=== PATIENT | female | born 1975 | race Caucasian/White ===

== ENCOUNTER 2024-06-14 09:03 | Emergency (ER) | payer BC, SELFPAY ==
--- OUTSIDE RECORDS SUMMARY | 2024-06-14 09:08 | XMS REPORT | Continuity of Care Document ---
Author Name Unknown Address [address] [facility] [address] [place] [address] [facility] Address [address] [facility] [address] [place] [address] Care Team Providers Care Supervisor Research Kennel Name Role Phone PCP, PATIENT DOES NOT HAVE A Primary Care Physic ricky Unavailable DARRELL LAKE Attending Clinician Unavailable Darrell Lake MD Attending Clinician [phone] Katherine Jiang MD Attending Clinician [phone] KATHERINE JIANG Attending Clinician Unavailable LIZ MENDEZ Attending Clinician Unavailable Liz Mendez PA-C Attending Clinician [phone] Unknown, Attending Attending Clinician Unavailab vijay Doctor Unassigned, [place] Attending Clinician U navailable [email or web address]_S Attending Clinician UnavailMattie Esparza RN Attending Clinician [phone] Noble Oro MD Attending Clinician [phone] Alexander Ruiz MD Attending Clinician [phone] Abril LIMA, Rizwana Attending Clinician Unavailab Su Chakraborty Attending Clinician [phone] Kalina Naranjo Attending Clinician [phone] KALINA HARDING Attending Clinician Unavailable Francisco Ashley DO Attending Clinician [phone] NOBLE ORO Attending Clinician Unavailable Leny Trevino MD Attending Clinician [phone] DARRELL LAKE Admitting Clinician Unavailable [email or web address]_S Admitting Clinician UnavailAlexander Gaytan MD Admitting Clinician NOBLE ORO Admitting Clinician Unavailable Payers Payer Name Policy Type Policy Number Effective Date Expirati on Date Source BCBS [facility] OUT [facility] STATE [id number] 2020 00:00:00 PHCS GENERIC [id number] 2023 00:00:00 Problems Condition Name Condition Details Condition Category Status Onset Date Resolution Date Last Treatment Date Treating Clinician Comments Source Obesity (BMI 30-39.9) Obesity (BMI 30-39.9) Disease Active 05-12 00:00: 00 [facility] Back pain Back pain Disease Active 12-06 00:00: 00 [facility] Atypical squamous cell changes of undetermin ed significan ce (ASCUS) on cervical cytology with positive high risk human papilloma virus (HPV) Atypical squamous cell changes of undetermin ed significan ce (ASCUS) on cervical cytology with positive high risk human papilloma virus (HPV) Disease Active 06-28 00:00: 00 [facility] Atypical squamous cell changes of undetermin ed significan ce (ASCUS) on cervical cytology with positive high risk human papilloma virus (HPV) Atypical squamous cell changes of undetermin ed significan ce (ASCUS) on cervical cytology with positive high risk human papilloma virus (HPV) Disease Active 06-28 00:00: 00 [facility] Morbid obesity with body mass index of 40.0-49.9 Morbid obesity with body mass index of 40.0-49.9 Disease Active 06-01 00:00: 00 [facility] Polycystic ovarian syndrome Polycystic ovarian syndrome Disease Active 06-01 00:00: 00 [facility] Hirsutism Hirsutism Disease Active 06-01 00:00: 00 [facility] Morbid obesity with body mass index of 40.0-49.9 Morbid obesity with body mass index of 40.0-49.9 Disease Active 06-01 00:00: 00 [facility] No known active problems No known active problems Disease [facility] Allergies, Adverse Reactions, Alerts Allergy Name Allergy Type Status Severity Reaction(s) Onset Date Inactive Date Treating Clinician Comments Source NO KNOWN ALLERGIE S Drug Class Active [facility] Social History Social Habit Start Date Stop Date Quantity Comments Source History SDOH Alcohol Std Drinks [facility] History SDOH Alcohol Binge [facility] Exposure to SARS-CoV-2 (event) Not sure [facility] History of tobacco use Current smoker [facility] Sexual orientation U [facility] History of Social function 2023 00:00:00 2023 00:00:00 [facility] Alcoholic beverage intake 2023 00:00:00 2023 00:00:00 Current drinker of alcohol (finding) [facility] Tobacco use and exposure 2023-05-12 00:00:00 2023-05-12 00:00:00 Smokeless tobacco non-user [facility] Alcohol intake 2023-05-12 00:00:00 2023-05-12 00:00:00 Current drinker of alcohol (finding) [facility] History SDOH Alcohol Frequency 2019-06-01 00:00:00 2019-06-01 00:00:00 2 [facility] Sex assigned at 1975 00:00:00 1975 00:00:00 [facility] Smoking Status Start Date Stop Date Source Ex-smoker 2023-05-12 00:00:00 2023-05-12 00:00:[address] [facility] Medications Ordered Medication Name Filled Medication Name Start Date Stop Date Current Medication? Ordering Clinician Indication Dosage Frequency Signature (SIG) Comments Components Source ibuprofen (IBU) tablet 600 mg 08-21 16:00: 00 08-21 15:56 :00 No 600mg 600 mg, Oral, ONCE, 1 dose, On Tue08/22/23 at 1100, [facility] HYDROcodone -acetaminop hen (NORCO 5) 5-325 mg tablet 1 tablet 08-21 16:00: 00 08-21 15:56 :00 No 1{tbl} 1 tablet, Oral, ONCE, 1 dose, On 08/22/23 at 1100, [facility] metroNIDAZO LE 500 mg tablet -15 00:00: 00 Yes [id number] 500mg Take 1 tablet by mouth every 12 (twelve) hours. [facility] ketorolac (TORADOL) injection 60 mg 04-13 00:30: 00 04-12 23:52 :00 No [id number] 60mg [facility] naproxen 500 mg tablet 04-12 00:00: 00 Yes [id number] 500mg Take 1 tablet by mouth in the morning and 1 tablet in the evening. Take with meals. [facility] docusate 100 mg capsule 12-08 00:00: 00 Yes [id number] 100mg Take 1 capsule by mouth daily. [facility] docusate (COLACE) capsule 100 mg 12-07 14:00: 00 Yes 100mg 100 mg, Oral, DAILY, First dose on 12/07/20 at 0900, Until Discontinu ed, Routine [facility] gabapentin (NEURONTIN) capsule 300 mg 12-07 03:00: 00 Yes 300mg 300 mg, Oral, TID, First dose on 12/06/20 at 2200, Until Discontinu ed, Routine [facility] gabapentin 300 mg capsule 12-07 00:00: 00 Yes [id number] 300mg Take 1 capsule by mouth 3 (three) times daily. [facility] HYDROcodone -acetaminop hen 5-325 mg tablet 12-07 00:00: 00 Yes [id number] 1{tbl} Take 1 tablet by mouth every 4 (four) hours as needed for Pain (scale 7-10). Indication s: acute pain [facility] methocarbam oL 500 mg tablet 12-07 00:00: 00 Yes [id number] 500mg Take 1 tablet by mouth 4 (four) times daily. [facility] methylPREDN ISolone (MEDROL, RAJESH,) 4 mg tablets 12-07 00:00: 00 Yes [id number] Take by mouth SEE-INSTRU CTIONS. follow package directions [facility] methocarbam oL (ROBAXIN) tablet 500 mg 12-06 21:00: 00 Yes 500mg 500 mg, Oral, QID, First dose on 12/06/20 at 1600, Until Discontinu ed, Routine [facility] buPROPion SR 150 mg SR tablet 12-06 19:10: 37 12-06 00:00 :00 No bupropion HCl SR 150 mg tablet,12 hr sustained- release [facility] morpHINE injection 4 mg 12-06 19:09: 24 Yes 4mg 4 mg, Slow IV Push, Q3HPRN, Starting 12/06/20 at 1409, Until Discontinu ed, Routine, breakthrou gh pain 4-10 [facility] ondansetron (ZOFRAN (PF)) injection 4 mg 12-06 19:05: 40 Yes 4mg 4 mg, Slow IV Push, Q6HPRN, Starting 12/06/20 at 1405, Until Discontinu ed, Routine, Nausea and Vomiting (N/V) [facility] HYDROcodone -acetaminop hen (NORCO 5) 5-325 mg tablet 1 tablet 12-06 19:05: 39 Yes 1{tbl} 1 tablet, Oral, Q4HPRN, Starting 12/06/20 at 1405, Until Discontinu ed, Routine, Pain (scale 7-10) [facility] traMADoL (ULTRAM) tablet 50 mg 12-06 19:05: 39 Yes 50mg 50 mg, Oral, Q4HPRN, Starting 12/06/20 at 1405, Until Discontinu ed, Routine, Pain (scale 4-6) [facility] acetaminoph en (TYLENOL) tablet 650 mg 12-06 19:05: 39 Yes 650mg 650 mg, Oral, Q4HPRN, Starting 12/06/20 at 1405, Until Discontinu ed, Routine, Pain (scale 1-3) [facility] FENTanyl PF (SUBLIMAZE (PF)) injection 100 mcg 12-06 18:30: 00 12-06 17:20 :00 No 100ug 100 mcg, Slow IV Push, ONCE, 1 dose, 12/06/20 at 1330, Routine [facility] iopamidol (ISOVUE 370-500 mL) injection 120 mL 12-06 16:30: 00 12-06 16:30 :00 No [id number] 120mL 120 mL, Intravenou s, ONCE, 1 dose, 12/06/20 at 1130, Routine [facility] ondansetron (ZOFRAN (PF)) injection 4 mg 12-06 15:45: 00 12-06 14:52 :00 No 4mg 4 mg, Slow IV Push, ONCE, 1 dose, 12/06/20 at 1045, [facility] FENTanyl PF (SUBLIMAZE (PF)) injection 100 mcg 12-06 15:45: 00 12-06 14:53 :00 No 100ug 100 mcg, Slow IV Push, ONCE, 1 dose, 12/06/20 at 1045, Rout[facility] NaCl 0.9% (NS) bolus infusion 500 mL 12-06 15:45: 00 12-06 15:30 :00 No 500mL at 999 mL/hr, 500 mL, IV Piggyback, ONCE, 1 dose, 12/06/20 at 1045, STAT [facility] buPROPion SR 150 mg SR tablet 06-01 22:22: 13 Yes bupropion HCl SR 150 mg tablet,12 hr sustained- release [facility] ciprofloxac in HCl 500 mg tablet 05-25 00:00: 12-06 00:00 :00 No [facility] ondansetron (ZOFRAN (PF)) injection 4 mg 05-23 21:15: 05-23 20:06 :00 No 4mg 4 mg, Slow IV Push, ONCE, 1 dose, 05/23/19 at 1515, [facility] morpHINE injection 4 mg 05-23 21:15: 05-23 20:06 :00 No 4mg 4 mg, Slow IV Push, ONCE, 1 dose, 05/23/19 at 1515, STAT [facility] iohexol (OMNIPAQUE 350 BULK-150 mL) injection 120 mL 05-23 21:00: 05-23 21:00 :00 No 120mL 120 mL, Intravenou s, ONCE, 1 dose, 05/23/19 at 1500, Routine [facility] dicyclomine (BENTYL) 10 mg capsule 05-23 00:00: 06-01 00:00 :00 No [id number] 10mg Take 1 capsule by mouth 4 (four) times daily. [facility] ondansetron 4 mg disintegrat ing tablet 05-23 00:00: 06-01 00:00 :00 No [id number] 4mg Take 1 tablet by mouth every 4 (four) hours as needed for Nausea and Vomiting (N/V). [facility] traMADol 50 mg tablet 05-23 00:00: 06-01 00:00 :00 No [id number] 50mg Take 1 tablet by mouth every 6 (six) hours as needed for Pain (scale 4-6). [facility] citalopram 20 mg tablet 04-30 00:00: 00 12-06 00:00 :00 No [facility] HYDROcodone -acetaminop hen (NORCO) 10-325 mg tablet 1 tablet 12-26 16:45: 00 12-26 15:49 :00 No 1{tbl} 1 tablet, Oral, ONCE, 1 dose, Tu12/26/18 at 1145, Routine [facility] FENTanyl PF (SUBLIMAZE (PF)) injection 75 mcg 12-26 15:30: 00 12-26 14:45 :00 No 75ug 75 mcg, Intramuscu lar, ONCE, 1 dose, 12/26/18 at 1030, Routine [facility] traMADol (ULTRAM) 50 mg tablet 12-26 00:00: 00 12-06 00:00 :00 No [id number] 50mg Take 1 tablet by mouth every 6 (six) hours as needed for Pain (scale 7-10). [facility] methocarbam ol (ROBAXIN) 500 mg tablet 12-26 00:00: 00 06-01 00:00 :00 No [id number] 500mg Take 1 tablet by mouth 4 (four) times daily. [facility] No known medications No Un marsha [facility] Vital Signs Vital Name Observation Time Observation Value Comments S ource Systolic blood pressure 2023 16:13:27 139 mm[Hg] [facility] Diastolic blood pressure 2023 16:13:27 82 mm[Hg] [facility] Heart rate 2023 16:13:27 74 /min [facility] Respiratory rate 2023 16:13:27 18 /min [facility] Oxygen saturation in Arterial blood by Pulse oximetry 2023 16:13:27 98 /min [facility] Body temperature 2023 14:06:00 37.39 Felecia [facility] Body height 2023 14:06:00 162.6 cm [facility] Body weight 2023 14:06:00 97.523 kg [facility] BMI 2023 14:06:00 36.90 kg/m2 [facility] Systolic blood pressure 2023-05-12 17:05:00 116 mm[Hg] [facility] Diastolic blood pressure 2023-05-12 17:05:00 78 mm[Hg] [facility] Heart rate 2023-05-12 17:05:00 74 /min Unive [facility] Body temperature 2023-05-12 17:05:00 36.78 Felecia [facility] Respiratory rate 2023-05-12 17:05:00 18 /min [facility] Body height 2023-05-12 17:05:00 162.6 cm [facility] Body weight 2023-05-12 17:05:00 92.534 kg [facility] BMI 2023-05-12 17:05:00 35.02 kg/m2 [facility] Systolic blood pressure 2023-04-12 23:27:00 118 mm[Hg] [facility] Diastolic blood pressure 2023-04-12 23:27:00 73 mm[Hg] [facility] Heart rate 2023-04-12 23:27:00 96 /min Unive [facility] Body temperature 2023-04-12 23:27:00 37.11 Felecia [facility] Respiratory rate 2023-04-12 23:27:00 17 /min [facility] Body weight 2023-04-12 23:27:00 90.13 kg [facility] BMI 2023-04-12 23:27:00 34.11 kg/m2 [facility] Oxygen saturation in Arterial blood by Pulse oximetry 2023-04-12 23:27:00 97 /min [facility] Systolic blood pressure 2020-12-07 16:40:00 102 mm[Hg] [facility] Diastolic blood pressure 2020-12-07 16:40:00 60 mm[Hg] [facility] Heart rate 2020-12-07 16:40:00 78 /min Unive [facility] Body temperature 2020-12-07 16:40:00 36.39 Felecia [facility] Respiratory rate 2020-12-07 16:40:00 24 /min [facility] Oxygen saturation in Arterial blood by Pulse oximetry 2020-12-07 16:40:00 96 /min [facility] Body height 2020-12-06 20:27:00 162.6 cm [facility] Body weight 2020-12-06 20:27:00 86.183 kg [facility] BMI 2020-12-06 20:27:00 32.61 kg/m2 [facility] Systolic blood pressure 2020-11-12 19:20:00 138 mm[Hg] [facility] Diastolic blood pressure 2020-11-12 19:20:00 84 mm[Hg] [facility] Heart rate 2020-11-12 19:20:00 72 /min Unive [facility] Body temperature 2020-11-12 19:20:00 36.89 Felecia [facility] Respiratory rate 2020-11-12 19:20:00 18 /min [facility] Body height 2020-11-12 19:20:00 162.6 cm [facility] Body weight 2020-11-12 19:20:00 87.091 kg [facility] BMI 2020-11-12 19:20:00 32.96 kg/m2 [facility] Oxygen saturation in Arterial blood by Pulse oximetry 2020-11-12 19:20:00 98 /min [facility] Systolic blood pressure 2019-06-29 18:46:00 135 mm[Hg] [facility] Diastolic blood pressure 2019-06-29 18:46:00 84 mm[Hg] [facility] Heart rate 2019-06-29 18:46:00 81 /min [facility] Body temperature 2019-06-29 18:46:00 36.72 Felecia [facility] Respiratory rate 2019-06-29 18:46:00 18 /min [facility] Body height 2019-06-29 18:46:00 162.6 cm [facility] Body weight 2019-06-29 18:46:00 129.729 kg [facility] BMI 2019-06-29 18:46:00 49.09 kg/m2 [facility] Systolic blood pressure 2019-06-01 22:17:00 123 mm[Hg] [facility] Diastolic blood pressure 2019-06-01 22:17:00 76 mm[Hg] [facility] Heart rate 2019-06-01 22:17:00 79 /min Unive [facility] Body temperature 2019-06-01 22:17:00 36.72 Felecia [facility] Respiratory rate 2019-06-01 22:17:00 18 /min [facility] Body height 2019-06-01 22:17:00 162.6 cm [facility] Body weight 2019-06-01 22:17:00 128.368 kg [facility] BMI 2019-06-01 22:17:00 48.58 kg/m2 [facility] Respiratory rate 2019-05-23 21:20:00 12 /min [facility] Systolic blood pressure 2019-05-23 21:19:00 139 mm[Hg] [facility] Diastolic blood pressure 2019-05-23 21:19:00 76 mm[Hg] [facility] Heart rate 2019-05-23 21:19:00 72 /min [facility] Oxygen saturation in Arterial blood by Pulse oximetry 2019-05-23 21:19:00 100 /min [facility] Body temperature 2019-05-23 19:06:56 37.22 [facility] Body height 2019-05-23 17:37:00 162.6 cm [facility] Body weight 2019-05-23 17:37:00 127.007 kg [facility] BMI 2019-05-23 17:37:00 48.06 kg/m2 [facility] Systolic blood pressure 2018-12-26 13:57:00 140 mm[Hg] [facility] Diastolic blood pressure 2018-12-26 13:57:00 93 mm[Hg] [facility] Heart rate 2018-12-26 13:57:00 82 /min Unive [facility] Body temperature 2018-12-26 13:57:00 37.22 [facility] Respiratory rate 2018-12-26 13:57:00 20 /min [facility] Body weight 2018-12-26 13:57:00 125.646 kg [facility] BMI 2018-12-26 13:57:00 47.55 kg/m2 [facility] Oxygen saturation in Arterial blood by Pulse oximetry 2018-12-26 13:57:00 100 /min [facility] Procedures Procedure Date / Time Performed Performing Clinician Source POCT TEST 2023-04-12 23:48:00 Gema Mendez [facility] ASSIGNMENT OF BENEFITS 2023-04-12 23:21:35 Docto r Unassigned, [place] [facility] MR LUMBAR SPINE WO CONTRAST 2020-12-06 23:43:21 Salvador Giron [facility] PROTHROMBIN TIME / INR 2020-12-06 20:48:00 Janet Giron [facility] ACTIVATED PARTIAL THRMPLAS SALIMA 2020-12-06 20:48:00 Salvador Giron [facility] FIBRINOGEN 2020-12-06 20:48:00 Salvador Giron [facility] CT ABDOMEN PELVIS W CONTRAST 2020-12-06 15:30:47 Noble Oro [facility] CT LUMBAR SPINE WO CONTRAST 2020-12-06 [facility]:30[facility]. METABOLIC PANEL ([id number]) 2020-12-06 14:50:00 Nbole Oro [facility] CBC WITH DIFF 2020-12-06 14:50:00 Noble Oro [facility] COVID-19 (ID NOW RAPID TESTING) 2020-12-06 14:50:00 Noble Oro [facility] POCT TEST 2020-12-06 14:23:00 Binh Oro [facility] URINALYSIS 2020-12-06 14:21:00 Noble Oro [facility] NOTICE OF PRIVACY PRACTICES 2020-12-06 14:14:29 Doctor Unassigned, [place] [facility] CONSENT/REFUSAL FOR DIAGNOSIS AND TREATMENT 2020-12-06 14:14:03 Doctor Unassigned, [place] [facility] POCT GRP A STREP (MOLECULAR) 2020-11-12 19:50:00 Su Baer [facility] DISCLOSURE AND CONSENT, MEDICAL AND SURGICAL PROCEDURES 2019-06-29 05:01:00 Doctor Unassigned, [place] [facility] POCT TEST 2019-06-29 00:00:00 Adum, Katherine Daisy [facility] ASSIGNMENT OF BENEFITS 2019-06-01 22:02:06 Docto r Unassigned, [place] [facility] CT ABDOMEN PELVIS W CONTRAST 2019-05-23 20:51:27 Noble Oro [facility] POCT TEST 2019-05-23 20:02:00 Binh Oro [facility] HEPATIC FUNCTION PANEL ([id number]) (ALB,T.PRO,BILI T,BU/BC,ALT,AST,ALK PHOS) 2019-05-23 19:56:00 Noble Oro [facility] BASIC METABOLIC PANEL (NA, K, CL, CO2, GLUCOSE, BUN, CREATININE, CA) 2019-05-23 19:56:00 Noble Oro [facility] CBC WITH DIFFERENTIAL 2019-05-23 19:56:00 Justin Oro [facility] ACTIVATED PARTIAL THRMPLAS SALIMA 2019-05-23 19:56:00 Noble Oro [facility] URINALYSIS 2019-05-23 19:56:00 Noble Oro [facility] NOTICE OF PRIVACY PRACTICES 2019-05-23 17:21:59 Doctor Unassigned, [place] [facility] CONSENT/REFUSAL FOR DIAGNOSIS AND TREATMENT 2019-05-23 17:21:45 Doctor Unassigned, [place] [facility] CONSENT/REFUSAL FOR DIAGNOSIS AND TREATMENT 2018-12-26 13:32:28 Doctor Unassigned, [place] [facility] Encounters Start Date/Time End Date/Time Encounter Type Admission Type Attending [facility] Care Department Encounter ID Source 2021-02-09 18:44:45 Emergency [facility] [id number] [facility] 2023 09:09:00 2023 11:14:00 Emergency DARRELL [facility] ERT [id number] [facility] 2023 09:09:00 2023 11:14:00 Emergency Darrell Lake [facility] [id number] 350.1.13.10 4.2.7.2.686 [id number] [facility] 2023-05-26 00:00:00 2023-05-26 00:00:00 Case Management AdKatherine cote [facility] 1.2840.114 350.1.13.10 4.2.7.2.686 [id number] [facility] 2023-05-12 11:00:00 2023-05-12 12:25:07 Outpatient R KATHERINE JIANG [facility] [id number] [facility] 2023-05-12 11:00:00 2023-05-12 12:25:07 Office Visit Katherine Jiang [facility] [id number] 350.1.13.10 4.2.7.2.686 [id number] [facility] 2023-04-12 17:20:00 2023-04-12 17:57:33 Outpatient R VANESSA LIZ [facility] [id number] [facility] 2023-04-12 17:20:00 2023-04-12 17:57:33 Urgent Care Liz Mendez Unknown, Attending [facility] 1.84.114 350.1.13.10 4.2.7.2.686 [id number] [facility] 2023-04-12 00:00:00 2023-04-12 00:00:00 Orders Only Doctor Unassigned, [place] [facility] 1.0.114 350.1.13.10 4.2.7.2.686 [id number] [facility] 2023-02-04 00:00:00 2023-02-04 00:00:00 Outpatient GC_GCBZW_Ka diyala_S [facility] [id number] [facility] 2020-12-09 00:00:00 2020-12-09 00:00:00 Transition of Care Melo Mattie Marmolejo 1.20.114 350.1.13.10 4.2.7.2.686 [id number] [facility] 2020-12-06 09:24:00 2020-12-07 12:35:00 [facility] 1.20.114 350.1.13.10 4.2.7.2.686 [id number] [facility] 2020-12-06 00:00:00 2020-12-06 00:00:00 Orders Only Doctor Unassigned, [place] [facility] 1.20.114 350.1.13.10 4.2.7.2.686 [id number] [facility] 2020-11-13 00:00:00 2020-11-13 00:00:00 Letter (Out) Rizwana Samuels [facility] 1..114 350.1.13.10 4.2.7.2.686 [id number] [facility] 2020-11-12 14:13:53 2020-11-12 14:33:53 [facility] 1.114 350.1.13.10 4.2.7.2.686 [id number] [facility] 2020-11-12 14:20:00 2020-11-12 14:20:00 Outpatient KALINA NORMAN [facility] [id number] [facility] 2020-11-12 00:00:00 2020-11-12 00:00:00 Letter (Out) Su Baer [facility] Office [facility] [id number] 350.1.13.10 4.2.7.2.686 [id number] [facility] 2020-06-26 00:00:00 2020-06-26 00:00:00 Patient Outreach DionFrancisco [facility] 1.2840.114 350.1.13.10 4.2.7.2.686 [id number] [facility] 2019-07-03 00:00:00 2019-07-03 00:00:00 Telephone AdPetty coteian Daisy [facility] 1.2840.114 350.1.13.10 4.2.7.2.686 [id number] [facility] 2019-06-29 13:03:48 2019-06-29 14:26:29 Office Visit AdKatherine cote [facility] [id number] 350.1.13.10 4.2.7.2.686 [id number] [facility] 2019-06-29 13:00:00 2019-06-29 13:00:00 Outpatient R KATHERINE JIANG [facility] [id number] [facility] 2019-06-29 00:00:00 2019-06-29 00:00:00 Orders Only Doctor Unassigned, [place] [facility] [id number] 350.1.13.10 4.2.7.2.686 [id number] [facility] 2019-06-19 00:00:00 2019-06-19 00:00:00 Telephone AdPetty coteian Daisy [facility] [id number] 350.1.13.10 4.2.7.2.686 [id number] [facility] 2019-06-01 16:05:01 2019-06-01 17:13:21 [facility] 1.2840.114 350.1.13.10 4.2.7.2.686 [id number] [facility] 2019-06-01 16:00:00 2019-06-01 17:13:21 [facility] [id number] [facility] 2019-06-01 00:00:00 2019-06-01 00:00:00 Orders Only Doctor Unassigned, [place] [facility] 1.2840.114 350.1.13.10 4.2.7.2.686 [id number] [facility] 2019-05-23 12:55:08 2019-05-23 15:48:00 Emergency Shorty Noble [facility] 1.2840.114 350.1.13.10 4.2.7.2.686 [id number] [facility] 2019-05-23 12:55:08 2019-05-23 15:48:00 Emergency X [facility] ERT [id number] [facility] 2019-05-23 00:00:00 2019-05-23 00:00:00 Orders Only Doctor Unassigned, [place] [facility] [id number] [id number] [facility] 2018-12-26 08:59:22 2018-12-26 11:07:00 Emergency Leny Trevino [facility] [id number] [facility] 2018-12-26 00:00:00 2018-12-26 00:00:00 Orders Only Doctor Unassigned, [place] [facility] [id number] [id number] [id number] [facility] Results Test Description Test Time Test Comments Results Result Co [facility]ments [facility] [id number] 01:25:10 Mild degenerative changes result in no significant spinal canal stenosis orhigh- grade neural foraminal narrowing at any level A prominent lateral osteophyte at L5-S1 contacts and may impinge upon theleft L5 nerve root in the far lateral region MR LUMBAR SPINE WO CONTRAST HISTORY: Female 45 years back pain, urinary incontinence, concern for caudaequina syndrome COMPARISON: CT lumbar spine dated 12/06/2020 TECHNIQUE: Multiplanar multi weighted imaging of the lumbar spine wasobtained without IV contrast FINDINGS: The vertebral bodies are normal in height and in normal alignment. Theconus terminates at the level of L1. The cauda equina nerve roots areunremarkable. The background marrow signal is unremarkable. Type II Modic endplatechanges are seen at L4-L5. Mild disc height loss is seen at L4-L5. L1-L2: No significant spinal canal stenosis or neural foraminal narrowing L2-L3: No significant spinal canal stenosis or neural foraminal narrowing L3-L4: Shallow central disc protrusion with associated annular fissure atthis level result in no significant spinal canal stenosis or neuralforaminal narrowing L4-L5: A shallow posterior disc bulge results in no significant spinalcanal stenosis andmild bilateral neural foraminal narrowing L5-S1: A shallow posterior disc bulge results in no significant spinalcanal stenosis and mild left neural foraminal narrowing. A prominent leftlateral osteophyte is noted at this level. 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 [facility], Radiant Results Inft User - 12/06/2020 8:26 PM CDT MR LUMBAR SPINE WO CONTRASTHISTORY: Female 45 years back pain, urinary incontinence, concern for caudaequina syndrome COMPARISON: CT lumbar spine dated 12/06/2020TECHNIQUE: Multiplanar multi weighted imaging of the lumbar spine wasobtained without IV contrastFINDINGS:The vertebral bodies are normal in height and in normal alignment. Theconus terminates at the level of L1. The cauda equina nerve roots areunremarkable.The background marrow signal is unremarkable. Type II Modic endplatechanges are seen at L4-L5. Mild disc height loss is seen at L4-L5.L1-L2: No significant spinal canal stenosis orneural foraminal narrowingL2-L3: No significant spinal canal stenosis or neural foraminal narrowingL3-L4: Shallow central disc protrusion with associated annular fissure atthis level result in no significant spinal canal stenosis or neuralforaminal narrowingL4-L5: A shallow posterior disc bulge results in no significant spinalcanal stenosis and mild bilateral neural foraminal narrowingL5-S1: A shallow posterior disc bulge results in no significant spinalcanal stenosis and mild left neural foraminal narrowing. A prominent leftlateral osteophyte is noted at this level.A Tarlov cyst is incidentally seen at the level of S3.IMPRESSIONMild degenerative changes result in no significant spinal canal stenosis orhigh-grade neural foraminal narrowing at any levelA prominent lateral osteophyte at L5-S1 contacts and may impinge upon theleft L5 nerve root in the far lateral regionUnTexas Health Presbyterian Hospital PlanoMR LUMBAR SPINE WO [id number] 01:25:10Mild degenerative changes result in no significant spinal canal stenosis orhigh-grade neural foraminal narrowing at any level A prominent lateral osteophyte at L5-S1 contacts and may impinge upon theleft L5 nerve root in the far lateral region MR LUMBAR SPINE WO CONTRAST HISTORY: Female 45 years back pain, urinary incontinence, concern for caudaequina syndrome COMPARISON: CT lumbar spine dated 12/06/2020 TECHNIQUE: Multiplanar multi weighted imaging of the lumbar spine wasobtained without IV contrast FINDINGS: The vertebral bodies are normal in height and in normal alignment. Theconus terminates at the level of L1. The cauda equina nerve roots areunremarkable. The background marrow signal is unremarkable. Type II Modic endplatechanges are seen at L4-L5. Mild disc height loss is seen at L4-L5. L1-L2: No significant spinal canal stenosis or neural foraminal narrowing L2-L3: No significant spinal canal stenosis or neural foraminal narrowing L3-L4: Shallow central disc protrusion with associated annular fissure atthis level result in no significant spinal canal stenosis or neuralforaminal narrowing L4-L5: A shallow posterior disc bulge results in no significant spinalcanal stenosis andmild bilateral neural foraminal narrowing L5-S1: A shallow posterior disc bulge results in no significant spinalcanal stenosis and mild left neural foraminal narrowing. A prominent leftlateral osteophyte is noted at this level. 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 [facility], Radiant Results Inft User - 12/06/2020 8:26 PM CDT MR LUMBAR SPINE WO CONTRASTHISTORY: Female 45 years back pain, urinary incontinence, concern for caudaequina syndrome COMPARISON: CT lumbar spine dated 12/06/2020TECHNIQUE: Multiplanar multi weighted imaging of the lumbar spine wasobtained without IV contrastFINDINGS:The vertebral bodies are normal in height and in normal alignment. Theconus terminates at the level of L1. The cauda equina nerve roots areunremarkable.The background marrow signal is unremarkable. Type II Modic endplatechanges are seen at L4-L5. Mild disc height loss is seen at L4-L5.L1-L2: No significant spinal canal stenosis orneural foraminal narrowingL2-L3: No significant spinal canal stenosis or neural foraminal narrowingL3-L4: Shallow central disc protrusion with associated annular fissure atthis level result in no significant spinal canal stenosis or neuralforaminal narrowingL4-L5: A shallow posterior disc bulge results in no significant spinalcanal stenosis and mild bilateral neural foraminal narrowingL5-S1: A shallow posterior disc bulge results in no significant spinalcanal stenosis and mild left neural foraminal narrowing. A prominent leftlateral osteophyte is noted at this level.A Tarlov cyst is incidentally seen at the level of S3.IMPRESSIONMild degenerative changes result in no significant spinal canal stenosis orhigh-grade neural foraminal narrowing at any levelA prominent lateral osteophyte at L5-S1 contacts and may impinge upon theleft L5 nerve root in the far lateral regionUnTexas Health Presbyterian Hospital PlanoaPTT2021-08-28 21:25:41* Test Item Value Reference Range Interpretation Comme nts APTT Patient (test code = 3173-2) See_Comment [Automated [employer]] The system which generated this result transmitted reference range: 26 - 36 Seconds. The reference range was not used to interpret this result as normal/abnormal. Lab Interpretation (test code = 65120-7) [facility]21[facility] 21:25:41* Test Item Value Reference Range Interpretation Comme nts Fibrinogen (test code = 8566901396) 302 mg/dL 167-453 Lab Interpretation (test cod e = 02614-7) Normal [facility] HospitalPROT[facility]OMBIN TIME / [id number] 21:25:41* Test Item Value Reference Range Interpretation Comme nts PROTIME PATIENT (test code = 5964-2) See_Comment [Automated [employer]] The system which generated this result transmitted reference range: 10.1 - 12.6 Seconds. The reference range was not used to interpret this result as normal/abnormal. INR (test code = 6301-6) Normal INR <1.1; Warfarin Therapeutic range 2.0 to 3.0 or 2.5 to 3.5, depending upon the indications. Lab Interpretation (test code = 79249-3) Normal [facility] HospitalaPTT2021-[facility]-28 21:25:41* Test Item Value Reference Range Interpretation Comme nts APTT Patient (test code = 3173-2) See_Comment [Automated [employer]] The system which generated this result transmitted reference range: 26 - 36 Seconds. The reference range was not used to interpret this result as normal/abnormal. Lab Interpretation (test code = 52036-9) Normal [facility]2021-08-28 21:25:41* Test Item Value Reference Range Interpretation Comme nts Fibrinogen (test code = 9353545890) 302 mg/dL 167-453 Lab Interpretation (test cod e = 08904-0) Normal [facility] HospitalPROTHROMBIN TIME / [id number] 21:25:41* Test Item Value Reference Range Interpretation Comme nts PROTIME PATIENT (test code = 5964-2) See_Comment [Automated [employer]] The system which generated this result transmitted reference range: 10.1 - 12.6 Seconds. The reference range was not used to interpret this result as normal/abnormal. INR (test code = 6301-6) Lab Interpretation (test code = 28741-8) Normal [facility] HospitalCT [facility] PEL[facility] W [id number] 16:16:20Multifocal bibasal groundglass opacities consistent with the knowndiagnosis of COVID 19 pneumonia. No acute intra-abdominal or pelvic abnormality. Preliminary Report Dictated by Resident: Diego Reynaga MD., have reviewed this study and agree with theabove report.CT ABDOMEN PELVIS W CONTRAST HISTORY: 45 years-old; Female; chronic back pain with a new onset urinaryincontinence yesterday. COMPARISON: Abdomen pelvis CT with contrast dated 05/23/2019. TECHNIQUE AND FINDINGS: Contiguous axial imaging from the level of the lungbases through the pubic symphysis was performe d after the uncomplicatedadministration of intravenous Omnipaque contrast. Coronal and sagittalreconstructions were obtained. ?Auto mA and/or iterative reconstructionwere used to reduce radiation dose. FINDINGS: LOWER THORAX: Peripheral patchy groundglass opacity is seen at the rightlower lobe and the left lower lobe and right middle lobe. No cardiomegaly. LIVER: No focal hepatic lesions. Normal contour. GALLBLADDER AND BILIARY TREE: No intra or extrahepatic biliary ductaldilation. SPLEEN: Unremarkable. PANCREAS: No ductal dilatation or masses ADRENAL GLANDS: No adrenal lesions. KIDNEYS: No hydronephrosis, stones, or masses. Homogeneous and symmetricalenhancement. GI TRACT: No dilation or efra wel wall thickening. Changes of prior sleevegastrectomy. Prior appendectomy. PERITONEUM AND RETROPERITONEUM: No free air or fluid collection. LYMPH NODES: No intra-abdominal or pelvic lymph node enlargement. PELVIS/BLADDER: Urinary bladder is partially decompressed.No wallthickening. The uterus andovaries appear normal. A vaginal tampon isnoted. VESSELS: Unremarkable. BONES AND SOFT TISSUES: Unchanged L4 vertebral body linear sclerosisanteriorly. [facility], Radiant Results Inft User - 12/06/2020 11:[address] ABDOMEN PELVIS W CONTRASTHISTORY: 45 years-old; Female; chronic back pain with a new onset urinaryincontinence yesterday.COMPAR GELACIO: Abdomen pelvis CT with contrast dated 05/23/2019.TECHNIQUE AND FINDINGS: Contiguous axial imaging from the level of the lungbases through the pubic symphysis was performed after the uncomplicatedadministration of intravenous Omnipaque contrast. Coronal and sagittalreconstructions were obtained. Auto mA and/or iterative reconstructionwere used to reduce radiation dose.FINDINGS:LOWER THORAX: Peripheral patchy groundglass opacity is seen at the rightlower lobe and the left lower lobe and right middle lobe. No cardiomegaly.LIVER: No focal hepatic lesions. Normal contour.GALLBLADDER AND BILIARY TREE: No intra or extrahepatic biliary ductaldilation. SPLEEN: Unremarkable.PANCREAS: No ductal di latation or massesADRENAL GLANDS: No adrenal lesions.KIDNEYS: No hydronephrosis, stones, or masses.Homogeneous and symmetricalenhancement.GI TRACT: No dilation or bowel wall thickening. Changes of prior sleevegastrectomy. Prior appendectomy.PERITONEUM AND RETROPERITONEUM: No free air or fluid colle ction.LYMPH NODES: No intra-abdominal or pelvic lymph node enlargement.PELVIS/BLADDER: Urinary bladder is partially decompressed.No wallthickening. The uterus and ovaries appear normal. A vaginal tampon isnoted.VESSELS: Unremarkable.BONES AND SOFT TISSUES: Unchanged L4 vertebral body linear sclerosisanteriorly.IMPRESSIONMultifocal bibasal groundglass opacities consistent with the knowndiagnosis of COVID 19 pneumonia.No acute intra-abdominal or pelvic abnormality.Preliminary Report Dictated by Resident: Diego Muniz MD., have reviewed this study and agree with theabove report.[facility] W [id number] 16:16:20Multifocal bibasal groundglass opacities consistent with the knowndiagnosis of COVID 19 pneumonia. No acute intra-abdominal or pelvic abnormality. Preliminary Report Dictated by Resident: Diego Reynaga MD., have reviewed this study and agree with theabove report.CT ABDOMEN PELVIS W CONTRAST HISTORY: 45 years-old; Female; chronic back pain with a new onset urinaryincontinence yesterday. COMPARISON: Abdomen pelvis CT with contrast dated 05/23/2019. TECHNIQUE AND FINDINGS: Contiguous axial imaging from the level of the lungbases through the pubic symphysis was performe d after the uncomplicatedadministration of intravenous Omnipaque contrast. Coronal and sagittalreconstructions were obtained. ?Auto mA and/or iterative reconstructionwere used to reduce radiation dose. FINDINGS: LOWER THORAX: Peripheral patchy groundglass opacity is seen at the rightlower lobe and the left lower lobe and right middle lobe. No cardiomegaly. LIVER: No focal hepatic lesions. Normal contour. GALLBLADDER AND BILIARY TREE: No intra or extrahepatic biliary ductaldilation. SPLEEN: Unremarkable. PANCREAS: No ductal dilatation or masses ADRENAL GLANDS: No adrenal lesions. KIDNEYS: No hydronephrosis, stones, or masses. Homogeneous and symmetricalenhancement. GI TRACT: No dilation or efra wel wall thickening. Changes of prior sleevegastrectomy. Prior appendectomy. PERITONEUM AND RETROPERITONEUM: No free air or fluid collection. LYMPH NODES: No intra-abdominal or pelvic lymph node enlargement. PELVIS/BLADDER: Urinary bladder is partially decompressed.No wallthickening. The uterus andovaries appear normal. A vaginal tampon isnoted. VESSELS: Unremarkable. BONES AND SOFT TISSUES: Unchanged L4 vertebral body linear sclerosisanteriorly. [facility], Radiant Results Inft User - 12/06/2020 11:[address] ABDOMEN PELVIS W CONTRASTHISTORY: 45 years-old; Female; chronic back pain with a new onset urinaryincontinence yesterday.COMPAR GELACIO: Abdomen pelvis CT with contrast dated 05/23/2019.TECHNIQUE AND FINDINGS: Contiguous axial imaging from the level of the lungbases through the pubic symphysis was performed after the uncomplicatedadministration of intravenous Omnipaque contrast. Coronal and sagittalreconstructions were obtained. Auto mA and/or iterative reconstructionwere used to reduce radiation dose.FINDINGS:LOWER THORAX: Peripheral patchy groundglass opacity is seen at the rightlower lobe and the left lower lobe and right middle lobe. No cardiomegaly.LIVER: No focal hepatic lesions. Normal contour.GALLBLADDER AND BILIARY TREE: No intra or extrahepatic biliary ductaldilation. SPLEEN: Unremarkable.PANCREAS: No ductal di latation or massesADRENAL GLANDS: No adrenal lesions.KIDNEYS: No hydronephrosis, stones, or masses.Homogeneous and symmetricalenhancement.GI TRACT: No dilation or bowel wall thickening. Changes of prior sleevegastrectomy. Prior appendectomy.PERITONEUM AND RETROPERITONEUM: No free air or fluid colle ction.LYMPH NODES: No intra-abdominal or pelvic lymph node enlargement.PELVIS/BLADDER: Urinary bladder is partially decompressed.No wallthickening. The uterus and ovaries appear normal. A vaginal tampon isnoted.VESSELS: Unremarkable.BONES AND SOFT TISSUES: Unchanged L4 vertebral body linear sclerosisanteriorly.IMPRESSIONMultifocal bibasal groundglass opacities consistent with the knowndiagnosis of COVID 19 pneumonia.No acute intra-abdominal or pelvic abnormality.Preliminary Report Dictated by Resident: Diego Muniz MD., have reviewed this study and agree with theabove report.[facility] HospitalCT [facility] WO [id number] 15:44:27No acute osseous abnormality. Mild degenerative changes in the mid and lower lumbar spine are notedwithno high-grade canal stenosis or neural foraminal narrowing suspected at anylevel, within the sheppard itations of CT CT LUMBAR SPINE WO CONTRAST HISTORY: Female 45 years cord compression COMPARISON: CTabdomen/pelvis dated 05/23/2019 TECHNIQUE: Routine CT lumbar spine without contrast FINDINGS: The vertebral bodies are normal in height and in normal alignment. Linearsclerosis in the anterior aspect of the L4 vertebral body is unchanged fromthe prior study. No facet fracture or subluxation is present. Spondylosis with small Schmorl's nodes in the L4 inferior endplate aresimilar in degree to the prior study. Shallow, partially calcified discbulges are again seen at L3-L4, L4-L5 and L5-S1. Disc height loss withvacuum disc phenomenon along the left side of L5-S1 is also noted. Nosignificant facet arthropathy is present. [facility], Radiant Results Inft User - 12/06/2020 10:[address] LUMBAR SPINE WO CONTRASTHISTORY: Female 45 years cordcompression COMPARISON: CT abdomen/pelvis dated 05/23/2019TECHNIQUE: Routine CT lumbar spine withoutcontrastFINDINGS:The vertebral bodies are normal in height and in normal alignment. Linearsclerosisin the anterior aspect of the L4 vertebral body is unchanged fromthe prior study. No facet fractureor subluxation is present.Spondylosis with small Schmorl's nodes in the L4 inferior endplate aresimilar in degree to the prior study. Shallow, partially calcified discbulges are again seen at L3-L4, L4-L5 and L5-S1. Disc height loss withvacuum disc phenomenon along the left side of L5-S1 is also noted. Nosignificant facet arthropathy is present.IMPRESSIONNo acute osseous abnormality.Mild degenerative changes in the mid and lower lumbar spine are noted withno high-grade canal stenosis or neural foraminal narrowing suspected at anylevel, within the limitations of CTUnTexas Health Presbyterian Hospital PlanoCT LUMBAR SPINE WO CONTRAST 2020-12-06 15:44:27No acute osseous abnormality. Mild degenerative changes in the mid and lower lumbar spine are notedwithno high-grade canal stenosis or neural foraminal narrowing suspected at anylevel, within the limitations of CT CT LUMBAR SPINE WO CONTRAST HISTORY: Female 45 years cord compression COMPARISON: CTabdomen/pelvis dated 05/23/2019 TECHNIQUE: Routine CT lumbar spine without contrast FINDINGS: The vertebral bodies are normal in height and in normal alignment. Linearsclerosis in the anterior aspect of the L4 vertebral body is unchanged fromthe prior study. No facet fracture or subluxation is present. Spondylosis with small Schmorl's nodes in the L4 inferior endplate aresimilar in degree to the prior study. Shallow, partially calcified discbulges are again seen at L3-L4, L4-L5 and L5-S1. Disc height loss withvacuum disc phenomenon along the left side of L5-S1 is also noted. Nosignificant facet arthropathy is present. [facility], Radiant Results Inft User - 12/06/2020 10:[address] LUMBAR SPINE WO CONTRASTHISTORY: Female 45 years cordcompression COMPARISON: CT abdomen/pelvis dated 05/23/2019TECHNIQUE: Routine CT lumbar spine without contrastFINDINGS:The vertebral bodies are normal in height and in normal alignment. Linearsclerosisin the anterior aspect of the L4 vertebral body is unchanged fromthe prior study. No facet fractureor subluxation is present.Spondylosis with small Schmorl's nodes in the L4 inferior endplate aresimilar in degree to the prior study. Shallow, partially calcified discbulges are again seen at L3-L4, L4-L5 and L5-S1. Disc height loss withvacuum disc phenomenon along the left side of L5-S1 is also noted. Nosignificant facet arthropathy is present.IMPRESSIONNo acute osseous abnormality.Mild degenerative changes in the mid and lower lumbar spine are noted withno high-grade canal stenosis or neural foraminal narrowing suspected at anylevel, within the limitations of [facility]. METABOLIC PANEL ([id number]) 2020-12-06 15:31:03* Test Item Value Reference Range Interpretation Comme nts NA (test code = 5070348510) 137 mmol/L 135-145 K (test code = 2627217703) 3.9 mmol/L 3.5-5.0 CL (test code = 8341580935) 102 mmol/L 98-108 CO2 TOTAL (test code = 0987746590) 29 mmol/L 23-31 AGAP (test code = 5024465215) 2-16 BUN (test code = 2858761244) 10 mg/dL 7-23 GLUCOSE (test code = 9402187723) 87 mg/dL 70-110 CREATININE (test code = 5644126975) 0.71 mg/dL 0.50-1.04 TOTAL BILI (test code = 8458976652) 0.4 mg/dL 0.1-1.1 CALCIUM (test code = 0867423690) 9.1 mg/dL 8.6-10.6 T PROTEIN (test code = 2089851257) 7.2 g/dL 6.3-8.2 ALBUMIN (test code = 2071914666) 4.0 g/dL 3.5-5.0 ALK PHOS (test code = 7484010299) 56 U/L 34-122 ALTv (test code = 1742-6) 20 U/L 5-35 AST(SGOT) (test code = 3785271412) 27 U/L 13-40 eGFR (test code = 9042028989) mL/min/1.73m2 LETICIA (test code = LETICIA) Association of Glomerular Filtration Rate (GFR) and Staging of Kidney Disease* + + +- +| GFR (mL/min/1.73 m2) ?| With Kidney Damage ?| ?Without Kidney Damage+ ------+ ----+ ------+| ?>90 ?| ?Stage one ?| ? Normal ?+ -+ + -+| ?60-89 ?| ?Stage two ?| ? Decreased GFR ? + + +- +| ?30-59 ?| ?Stage three ?| ? Stage three ? + + +- +| ?15-29 ?| ?Stage four ? | ? Stage four ?+ -+ + -+| ?<15 (or dialysis) ? ?| ?Stage five ? | ? Stage five ?+ -+ + -+ *Each stage assumes the associated GFR level has been in effect for at least three months. ?Stages 1 to 5, with or without kidney disease, indicate chronic kidney disease. Notes: Determination of stages one and two (with eGFR >59mL/min/1.73 m2) requires estimation of kidney damage for at least three months as defined by structural or functional abnormalities of the kidney, manifested by either:Pathological abnormalities or Markers of kidney damage (including abnormalities in the composition of the blood or urine or abnormalities in imaging tests). [facility]. METABOLIC PANEL (58975)2020-12-06 15:31:03* Test Item Value Reference Range Interpretation Comme nts NA (test code = 7975069224) 137 mmol/L 135-145 K (test code = 2162440078) 3.9 mmol/L 3.5-5.0 CL (test code = 5252843083) 102 mmol/L 98-108 CO2 TOTAL (test code = 3871797733) 29 mmol/L 23-31 AGAP (test code = 3023256462) 2-16 BUN (test code = 6625748886) 10 mg/dL 7-23 GLUCOSE (test code = 1275133091) 87 mg/dL 70-110 CREATININE (test code = 6193540730) 0.71 mg/dL 0.50-1.04 TOTAL BILI (test code = 4053568937) 0.4 mg/dL 0.1-1.1 CALCIUM (test code = 7195573304) 9.1 mg/dL 8.6-10.6 T PROTEIN (test code = 5994300077) 7.2 g/dL 6.3-8.2 ALBUMIN (test code = 3554976213) 4.0 g/dL 3.5-5.0 ALK PHOS (test code = 6051065892) 56 U/L 34-122 ALTv (test code = 1743-6) 20 U/L 5-35 AST(SGOT) (test code = 5512379541) 27 U/L 13-40 eGFR (test code = 1564938038) mL/min/1.73m2 LETICIA (test code = LETICIA) [facility] WITH [id number] 15:19:18* Test Item Value Reference Range Interpretation Comme nts WBC (test code = 6690-2) See_Comment L [Automated [employer]] The system which generated this result transmitted reference range: 4.30 - 11.10 10*3/?L. The reference range was not used to interpret this result as normal/abnormal. RBC (test code = 789-8) See_Comment [Automated [employer]] The system which generated this result transmitted reference range: 3.93 - 5.25 10*6/?L. The reference range was not used to interpret this result as normal/abnormal. HGB (test code = 718-7) 13.6 g/dL 11.6-15.0 HCT (test code = 4544-3) 41.4 % 35.7-45.2 MCV (test code = 787-2) 90.0 fL 80.6-95.5 MCH (test code = 785-6) 29.6 pg 25.9-32.8 MCHC (test code = 786-4) 32.9 g/dL 31.6-35.1 RDW-SD (test code = 97302-5) 42.7 fL 39.0-49.9 RDW-CV (test code = 788-0) 12.9 % 12.0-15.5 PLT (test code = 777-3) See_Comment L [Automated [employer]] The system which generated this result transmitted reference range: 166 - 358 10*3/?L. The reference range was not used to interpret this result as normal/abnormal. MPV (test code = 05058-1) 11.2 fL 9.5-12.9 IPF % (test code = 9457310577) 2.7 % 1.3-7.7 Platelet count measured by fluorescence method. NRBC/100 WBC (test code = 7316167082) See_Comment [Automated [employer]] The system which generated this result transmitted reference range: 0.0 - 10.0 /100 WBCs. The reference range was not used to interpret this result as normal/abnormal. NRBC x10^3 (test code = 1726411145) <0.01 See_Comment [Automated messa ge] The system which generated this result transmitted reference range: 10*3/?L. The reference range was not used to interpret this result as normal/abnormal. GRAN MAT (NEUT) % (test code = 770-8) 68.8 % IMM GRAN % (test code = 6635746682) 0.20 % LYMPH % (test code = 736-9) 22.2 % MONO % (test code = 5905-5) 8.6 % EOS % (test code = 713-8) 0.0 % BASO % (test code = 706-2) 0.2 % GRAN MAT x10^3(ANC) (test code = 9405619915) 2.94 10*3/uL 1.88-7.09 IMM GRAN x10^3 (test code = 8408198952) <0.03 0.00-0.06 LYMPH x10^3 (test code = 731-0) 0.95 10*3/uL 1.32-3.29 L MONO x10^3 (test code = 742-7) 0.37 10*3/uL 0.33-0.92 EOS x10^3 (test code = 711-2) <0.03 0.03-0.39 L BASO x10^3 (test code = 704-7) <0.03 0.01-0.07 Lab Interpretation (test code = 00287-2) Abnormal [facility] WITH [id number] 15:19:18* Test Item Value Reference Range Interpretation Comme nts WBC (test code = 6690-2) See_Comment L [Automated messa ge] The system which generated this result transmitted reference range: 4.30 - 11.10 10*3/?L. The reference range was not used to interpret this result as normal/abnormal. RBC (test code = 789-8) See_Comment [Automated messa ge] The system which generated this result transmitted reference range: 3.93 - 5.25 10*6/?L. The reference range was not used to interpret this result as normal/abnormal. HGB (test code = 718-7) 13.6 g/dL 11.6-15.0 HCT (test code = 4544-3) 41.4 % 35.7-45.2 MCV (test code = 787-2) 90.0 fL 80.6-95.5 MCH (test code = 785-6) 29.6 pg 25.9-32.8 MCHC (test code = 786-4) 32.9 g/dL 31.6-35.1 RDW-SD (test code = 64690-1) 42.7 fL 39.0-49.9 RDW-CV (test code = 788-0) 12.9 % 12.0-15.5 PLT (test code = 777-3) See_Comment L [Automated messa ge] The system which generated this result transmitted reference range: 166 - 358 10*3/?L. The reference range was not used to interpret this result as normal/abnormal. MPV (test code = 57146-4) 11.2 fL 9.5-12.9 IPF % (test code = 3472657436) 2.7 % 1.3-7.7 NRBC/100 WBC (test code = 5715074556) See_Comment [Automated [employer]] The system which generated this result transmitted reference range: 0.0 - 10.0 /100 WBCs. The reference range was not used to interpret this result as normal/abnormal. NRBC x10^3 (test code = 0406942074) <0.01 See_Comment [Automated messa ge] The system which generated this result transmitted reference range: 10*3/?L. The reference range was not used to interpret this result as normal/abnormal. GRAN MAT (NEUT) % (test code = 770-8) 68.8 % IMM GRAN % (test code = 8137142928) 0.20 % LYMPH % (test code = 736-9) 22.2 % MONO % (test code = 5905-5) 8.6 % EOS % (test code = 713-8) 0.0 % BASO % (test code = 706-2) 0.2 % GRAN MAT x10^3(ANC) (test code = 0699424357) 2.94 10*3/uL 1.88-7.09 IMM GRAN x10^3 (test code = 8853933120) <0.03 0.00-0.06 LYMPH x10^3 (test code = 731-0) 0.95 10*3/uL 1.32-3.29 L MONO x10^3 (test code = 742-7) 0.37 10*3/uL 0.33-0.92 EOS x10^3 (test code = 711-2) <0.03 0.03-0.39 L BASO x10^3 (test code = 704-7) <0.03 0.01-0.07 Lab Interpretation (test code = 39653-7) [facility]2020-[facility]-06 15:14:43* Test Item Value Reference Range Interpretation Comme nts SARS-CoV-2 Rapid ID NOW (test code = 74574-5) Positive Not Detected A LETICIA (test code = LETICIA) ID NOW COVID-19 As say is an isothermal nucleic acid amplification test intended for the qualitative detection of nucleic acid from SARS-CoV-2 viral RNA in nasopharyngeal (INFORMATION ASSURANCE ANALYST) specimens. It is used under Emergency Use Authorization (EUA) by FDA. The limit of detection (LOD) of the assay is 125 Genome Equivalents/mL. A positive result is indicative of the presence of SARS-CoV-2 RNA. ?Clinical correlation with patient history and other diagnostic information is necessary to determine patient infection status. A negative (Not Detected) result does not preclude SARS-CoV-2 infection. In patients with clinical symptoms and other tests that are consistent with SARS-CoV-2 infection, negative results should be treated as presumptive negative and a new specimen should be tested with alternative PCR molecular test. Invalid: Please collect a new specimen for repeat patient testing if clinically indicated. Lab Interpretation (test code = 58419-9) [facility]2020-12-06 15:14:43* Test Item Value Reference Range Interpretation Comme nts SARS-CoV-2 Rapid ID NOW (eric t code = 15909-9) Positive Not Detected A LETICIA (test code = LETICIA) Lab Interpretation (test cod e = 95524-5) [facility] 14:36:40* Test Item Value Reference Range Interpretation Comme nts APPEARANCE (test code = 3284802627) Hazy Clear A COLOR (test code = 8229649184) Marcela Yellow A PH (test code = 9755982927) 4.8-8.0 SP GRAVITY (test code = 0078128057) 1.003-1.030 GLU U QUAL (test code = 2321376476) Normal Normal BLOOD (test code = 4425566529) 1+ Negative A KETONES (test code = 4653407758) 5 mg/dL Negative A PROTEIN (test code = 2887-8) Negative Negative UROBILIN (test code = 1126015106) 2.0 mg/dL Normal A BILIRUBIN (test code = 3963146453) Negative Negative NITRITE (test code = 4461881460) Negative Negative LEUK THU (test code = 0979453432) Negative Negative RBC/HPF (test code = 0624451697) See_Comment H [Automated messa ge] The system which generated this result transmitted reference range: 0 - 3 HPF. The reference range was not used to interpret this result as normal/abnormal. WBC/HPF (test code = 4699361081) See_Comment [Automated messa ge] The system which generated this result transmitted reference range: 0 - 5 HPF. The reference range was not used to interpret this result as normal/abnormal. BACTERIA (test code = 2816485796) Few Negative A MUCOUS (test code = 4727619254) Slight Negative LPF A SQ EPITH (test code = 3577664451) HPF TRANS EPI (test code = 7870735068) <1 See_Comment [Automated [employer]] The system which generated this result transmitted reference range: <=1 HPF. The reference range was not used to interpret this result as normal/abnormal. Lab Interpretation (test code = 26935-4) [facility] 14:36:40* Test Item Value Reference Range Interpretation Comme nts APPEARANCE (test code = 5027115826) Hazy Clear A COLOR (test code = 6303188566) Marcela Yellow A PH (test code = 6107781444) 4.8-8.0 SP GRAVITY (test code = 5392387813) 1.003-1.030 GLU U QUAL (test code = 6666311097) Normal Normal BLOOD (test code = 3564689011) 1+ Negative A KETONES (test code = 3773088611) 5 mg/dL Negative A PROTEIN (test code = 2887-8) Negative Negative UROBILIN (test code = 1081405314) 2.0 mg/dL Normal A BILIRUBIN (test code = 8827038305) Negative Negative NITRITE (test code = 1457916549) Negative Negative LEUK THU (test code = 5285563455) Negative Negative RBC/HPF (test code = 1893480951) See_Comment H [Automated messa ge] The system which generated this result transmitted reference range: 0 - 3 HPF. The reference range was not used to interpret this result as normal/abnormal. WBC/HPF (test code = 8508922263) See_Comment [Automated messa ge] The system which generated this result transmitted reference range: 0 - 5 HPF. The reference range was not used to interpret this result as normal/abnormal. BACTERIA (test code = 7366510371) Few Negative A MUCOUS (test code = 0278885126) Slight Negative LPF A SQ EPITH (test code = 8092316933) HPF TRANS EPI (test code = 4970281243) <1 See_Comment [Automated messa ge] The system which generated this result transmitted reference range: <=1 HPF. The reference range was not used to interpret this result as normal/abnormal. Lab Interpretation (test code = 34624-2) Abnormal [facility] [id number] 14:23:00* Test Item Value Reference Range Interpretation Comme nts POCT PREG (test code = 1605) negative On board controls acceptable with C Line (test code = 3574) present POCT PREG LOT # (test code = 3575) [id number] POCT PREG TEST DATE ( test code = 3576) Lab Interpretation (test cod e = 82044-2) Normal [facility] [id number] 14:23:00* Test Item Value Reference Range Interpretation Comme nts POCT PREG (test code = 1605) negative On board controls acceptable with C Line (test code = 3574) present POCT PREG LOT # (test code = 3575) [id number] POCT PREG TEST DATE ( test code = 3576) Lab Interpretation (test cod e = 86592-5) Normal [facility] GRP A STREP (MOLECULAR)2020-11-12 19:51:00* Test Item Value Reference Range Interpretation Comme nts POCT GP A STREP (test code = 68285-3) neg Negative - Negative Lab Interpretation (test cod e = 22988-2) Normal [facility] [id number] 18:50:00* Test Item Value Reference Range Interpretation Comme nts POCT PREG (test code = 1605) Negative On board controls acceptable with C Line (test code = 3574) Yes POCT PREG LOT # (test code = 3575) POCT PREG TEST DATE ( test code = 3576) Lab Interpretation (test cod e = 31625-1) Normal [facility] [id number] 18:50:00* Test Item Value Reference Range Interpretation Comme nts POCT PREG (test code = 1605) Negative On board controls acceptable with C Line (test code = 3574) Yes POCT PREG LOT # (test code = 3575) POCT PREG TEST DATE ( test code = 3576) Lab Interpretation (test cod e = 69971-7) Normal [facility] ABDOMEN PELVIS W [id number] 21:08:50CT Abdomen and Pelvis with intravenous contrast. CLINICAL HISTORY: Abdominal infection, including peritonitis. DOSE: Up-to-date CT equipment and radiation dose reduction techniques wereemployed. CTDIvol: 17.57 mGy. DLP: 892 mGy-cm. TECHNIQUE : Contiguous axial imaging from the level of the lung base sthrough the pubic symphysis were performed after the uncomplicatedadministration of Omnipaque contrast material. ?Coronal and sagittalreconstructions were obtained. Auto mA and/or iterative reconstruction wereused to reduce radiation dose. FINDINGS: No prior CT study available for comparison. Lower lungs: Clear. No pleural effusion or pericardial effusion. Liver, Gallbladder and Spleen: Liver isapproximately 16.8 cm and showed nolesions. Spleen is 11.8 x 3.5 cm. No calcified gallstones. Biliary ductsand the pancreatic duct appear of normal size. 1 cm nodule near the hilumof the spleen and asubcentimeter nodule in the anterior left upper abdomencould be accessory splenules. Peritoneum: ?No free air or free fluid. No lymphadenopathy. Pancreas and Adrenals: ?Unremarkable pancreas and adrenal glands. Kidneys and Ureters: ?No visible calculi in the renal collecting systems. No hydroureteror hydronephrosis. 9 mm cyst noted in the upper left kidney. Vessels: Normal. Retroperitoneum: No abnormal fluid or lymphadenopathy. Bowel: Appendix AMI suspected. Please correlate with history. Diverticulosis of entire large bowel suspected without new focal changes ofdiverticulitis. Small bowel gas pattern is unremarkable. Bladder and Reproductive Organs: Uterus is enlarged without any focalmyometrial lesions visualized. Small cysts in the ovaries noted, largestappears to be of 2 cm size in the right ovary, consistent with physiologicchanges. There is no free fluid in the pelvis. Grossly unr emarkableunopacified urinary bladder. Bones: Diffuse sclerosis of lower two third of L4 vertebral body, ofunknown significance but could be degenerative marrow. Degenerative discdisease noted at L4-L5, L5-S1 with bilateral facet arthritis. No signs ofAVN in the femoral heads. Lower thoracic degenerative spondylosis and oldfracture of upper plate of T9 and T10 vertebral bodies noted. Soft tissues:Small fat-containing umbilical hernia. CONCLUSION: No acute intra- abdominal or pelvic abnormalitiesdetected. [facility], Radiant Results Inft User - 05/23/2019 3:09 PM CSTCT Abdomen and Pelvis with intravenous contrast.CLINICAL HISTORY: Abdominal infection, including peritonitis.DOSE: Up-to-date CT equip ment and radiation dose reduction techniques wereemployed. CTDIvol: 17.57 mGy. DLP: 892 mGy-cm.TECHNIQUE : Contiguous axial imaging from the level of the lung basesthrough the pubic symphysis were performed after the uncomplicatedadministration of Omnipaque contrast material. Coronal and sagittalreconstructions were obtained. Auto mA and/or iterative reconstruction wereused to reduce radiation dose.FINDINGS: No prior CT study available for comparison.Lower lungs: Clear. No pleural effusion or pericardial effusion.Liver, Gallbladder and Spleen: Liver is approximately 16.8 cm and showed nolesions. Spleen is 11.8 x 3.5 cm. No calcified gallstones. Biliary ductsand the pancreatic duct appear ofnormal size. 1 cm nodule near the hilumof the spleen and a subcentimeter nodule in the anterior left upper abdomencould be accessory splenules.Peritoneum: No free air or free fluid. No lymphadenopathy .Pancreas and Adrenals: Unremarkable pancreas and adrenal glands.Kidneys and Ureters: No visible calculi in the renal collecting systems. No hydroureter or hydronephrosis. 9 mm cyst noted in the upper left kidney. Vessels: Normal.Retroperitoneum: No abnormal fluid or lymphadenopathy.Bowel: AppendixAMI suspected. Please correlate with history.Diverticulosis of entire large bowel suspected withoutnew focal changes ofdiverticulitis. Small bowel gas pattern is unremarkable.Bladder and Reproductive Organs: Uterus is enlarged without any focalmyometrial lesions visualized. Small cysts in the ovaries noted, largestappears to be of 2 cm size in the right ovary, consistent with physiologicchanges.There is no free fluid in the pelvis. Grossly unremarkableunopacified urinary bladder.Bones: Diffuse sclerosis of lower two third of L4 vertebral body, ofunknown significance but could be degenerative marrow. Degenerative discdisease noted at L4-L5, L5-S1 with bilateral facet arthritis. No signs ofAVN in the femoral heads. Lower thoracic degenerative spondylosis and oldfracture of upper plate of T9 and T10 vertebral bodies noted.Soft tissues: Small fat-containing umbilical hernia.CONCLUSION: Noacute intra-abdominal or pelvic abnormalities detected.[facility] (NA, K, CL, CO2, GLUCOSE, BUN, CREATININE, CA) 2019-05-23 20:21:00* Test Item Value Reference Range Interpretation Comme nts NA (test code = 9811595084) 139 mmol/L 135-145 K (test code = 2825990759) 4.5 mmol/L 3.5-5 CL (test code = 1341911679) 104 mmol/L 98-108 CO2 TOTAL (test code = 7763047313) 28 mmol/L 23-31 AGAP (test code = 9186692527) 2-16 BUN (test code = 1563310333) 11 mg/dL 7-23 GLUCOSE (test code = 6736807053) 81 mg/dL 70-110 CREATININE (test code = 2779600056) 0.59 mg/dL 0.5-1.04 CALCIUM (test code = 9870924743) 9.2 mg/dL 8.6-10.6 eGFR Calculation (Non-) (test code = 7596780255) mL/min/1.73m2 eGFR Calculation () (test code = 1233951823) mL/min/1.73m2 LETICIA (test code = LETICIA) Association of Glomerular Filtration Rate (GFR) and Staging of Kidney Disease* + -+ + ---+| GFR (mL/min/1.73 m2) ?| With Kidney Damage ?| ?Without Kidney Damage+ -------+ ------+ ---------+| ?>90 ?| ?Stage one ?| ? Normal ?+ --+ -+ ----+| ?60-89 ?| ?Stage two ?| ? Decreased GFR ? + -+ + ---+| ?30-59 ?| ?Stage three ?| ? Stage three ? + -+ + ---+| ?15-29 ?| ?Stage four ? | ? Stage four ?+ --+ -+ ----+| ?<15 (or dialysis) ? ?| ?Stage five ? | ? Stage five ?+ --+ -+ ----+ *Each stage assumes the associated GFR level has been in effect for at least three months. ?Stages 1 to 5, with or without kidney disease, indicate chronic kidney disease. Notes: Determination of stages one and two (with eGFR >59mL/min/1.73 m2) requires estimation of kidney damage for at least three months as defined by structural or functional abnormalities of the kidney, manifested by either:Pathological abnormalities or Markers of kidney damage (including abnormalities in the composition of the blood or urine or abnormalities in imaging tests). [facility] (ALB, T.PRO, BILI T, BU/BC, ALT, AST, ALK PHOS)2019-05-23 20:21:00* Test Item Value Reference Range Interpretation Comme nts TOTAL BILI (test code = 9216701354) 0.5 mg/dL 0.1-1.1 BILI UNCON (test code = 5861943040) 0.3 mg/dL 0.1-1.1 BILI CONJ (test code = 9957103362) 0.0 mg/dL 0-0.3 T PROTEIN (test code = 9290949954) 7.5 g/dL 6.3-8.2 ALBUMIN (test code = 6975343024) 4.4 g/dL 3.5-5 ALK PHOS (test code = 0567514036) 65 U/L 34-122 ALTv (test code = 1742-6) 18 U/L 5-35 AST(SGOT) (test code = 8662105822) 22 U/L 13-40 Lab Interpretation (test cod e = 26667-2) Normal [facility] 20:21:00* Test Item Value Reference Range Interpretation Comme nts APPEARANCE (test code = 2207907109) Clear Clear COLOR (test code = 4742614533) Yellow Yellow PH (test code = 2240967274) 4.8-8.0 SP GRAVITY (test code = 5170323875) 1.003-1.030 GLU U QUAL (test code = 9094296373) Normal Normal BLOOD (test code = 2608246541) 1+ Negative A KETONES (test code = 3118658058) Negative Negative PROTEIN (test code = 2887-8) Negative Negative UROBILIN (test code = 2553978366) Normal Normal BILIRUBIN (test code = 0771791658) Negative Negative NITRITE (test code = 7055979535) Negative Negative LEUK THU (test code = 3211717040) 25/uL Negative A RBC/HPF (test code = 5984816503) See_Comment [Automated [employer]] The system which generated this result transmitted reference range: 0 - 3 HPF. The reference range was not used to interpret this result as normal/abnormal. WBC/HPF (test code = 3394141123) See_Comment [Automated [employer]] The system which generated this result transmitted reference range: 0 - 5 HPF. The reference range was not used to interpret this result as normal/abnormal. BACTERIA (test code = 6585183962) Many Negative A SQ EPITH (test code = 6160960086) HPF HYAL CAST (test code = 7081408447) See_Comment [Automated [employer]] The system which generated this result transmitted reference range: <=2 LPF. The reference range was not used to interpret this result as normal/abnormal. Lab Interpretation (test code = 06535-2) [facility]normal [facility] 20:16:00* Test Item Value Reference Range Interpretation Comme nts APTT Patient (test code = 3173-2) See_Comment [Automated message] The system which generated this result transmitted reference range: 23 - 38 Seconds. The reference range was not used to interpret this result as normal/abnormal. LETICIA (test code = LETICIA) [facility] patient population mean normal value for aPTT is 30 seconds. Lab Interpretation (test code = 34362-2) Normal [facility] WITH [id number] 20:08:00* Test Item Value Reference Range Interpretation Comme nts WBC (test code = 6690-2) See_Comment [Automated messa ge] The system which generated this result transmitted reference range: 4.30 - 11.10 10*3/?L. The reference range was not used to interpret this result as normal/abnormal. RBC (test code = 789-8) See_Comment [Automated messa ge] The system which generated this result transmitted reference range: 3.93 - 5.25 10*6/?L. The reference range was not used to interpret this result as normal/abnormal. HGB (test code = 718-7) 14.4 g/dL 11.6-15 HCT (test code = 4544-3) 44.9 % 35.7-45.2 MCV (test code = 787-2) 88.9 fL 80.6-95.5 MCH (test code = 785-6) 28.5 pg 25.9-32.8 MCHC (test code = 786-4) 32.1 g/dL 31.6-35.1 RDW-SD (test code = 25742-8) 42.0 fL 39-49.9 RDW-CV (test code = 788-0) 13.2 % 12-15.5 PLT (test code = 777-3) See_Comment [Automated messa ge] The system which generated this result transmitted reference range: 166 - 358 10*3/?L. The reference range was not used to interpret this result as normal/abnormal. MPV (test code = 87281-0) 10.6 fL 9.5-12.9 NRBC/100 WBC (test code = 9321873721) See_Comment [Automated [employer]] The system which generated this result transmitted reference range: 0.0 - 10.0 /100 WBCs. The reference range was not used to interpret this result as normal/abnormal. NRBC x10^3 (test code = 8182816214) <0.01 See_Comment [Automated me ssage] The system which generated this result transmitted reference range: 10*3/?L. The reference range was not used to interpret this result as normal/abnormal. GRAN MAT (NEUT) % (test code = 770-8) 59.2 % IMM GRAN % (test code = 5804619499) 0.30 % LYMPH % (test code = 736-9) 31.2 % MONO % (test code = 5905-5) 7.1 % EOS % (test code = 713-8) 1.8 % BASO % (test code = 706-2) 0.4 % GRAN MAT x10^3(ANC) (test code = 6581913355) 5.45 10*3/uL 1.88-7.09 IMM GRAN x10^3 (test code = 8605133839) 0.03 10*3/uL 0-0.06 LYMPH x10^3 (test code = 731-0) 2.87 10*3/uL 1.32-3.29 MONO x10^3 (test code = 742-7) 0.65 10*3/uL 0.33-0.92 EOS x10^3 (test code = 711-2) 0.17 10*3/uL 0.03-0.39 BASO x10^3 (test code = 704-7) 0.04 10*3/uL 0.01-0.07 [facility], Cjrnc7327-25-98 20:02:00 * Test Item Value Reference Range Interpretation Comme nts POCT PREG (test code = 1605) negative On board controls acceptable with C Line (test code = 3574) present POCT PREG LOT # (test code = 3575) [id number] POCT PREG TEST DATE ( test code = 3576) 11/08/2020 Lab Interpretation (test cod e = 63590-9) [facility] Notes Date/Time Note Provider Source 2023 11:13:58 Patient discharged to home. Patient given printed and verbal discharge instructions regarding diagnosis. Instructed to follow up with PCP. Patient verbalized understanding of instructions. Patient awake, alert, oriented, respirations even and unlabored, skin warm and dry, color appropriate for race. No adverse reaction to meds given in ER noted upon discharge. Discussed medications. Advised to seek medical attention for new/prolonged/worsening of symptoms, patient ambulated from unit with steady gait in no apparent distress. David [facility] 2023 09:05:43 Patient woke up with a red bump on palmar surface of left hand and pain. No meds [employer]. CMS intact. David Crawford RN [facility]"
[2024-06-14] MEDS ORDERED: DOXYCYCLINE 100 MG CAP PO ONE (11:37)
[2024-06-14] MEDS ORDERED: HYDROCODONE/APAP 7.5/325 MG TAB ONE (12:14)
[2024-06-14 13:23] LABS: Absolute Eosinophils 0.3 K/uL (0-0.5); Absolute Lymphocytes (CBC) 2.4 K/uL (0.7-4.9); Absolute Monocytes 0.7 K/uL (0.1-1.3); Absolute Neutrophil 5.3 K/uL (1.8-8.0); Basophils % 0.5 % (0-1.3); Eosinophils % 3.5 % (0-4.4); Hemoglobin 13.4 g/dL (12.0-15.0); Lymphocytes % 27.3 % (15.3-44.8); MCH 30.2 pg (27.0-35.0); MCHC 33.6 g/dL (32.0-36.0); MCV 89.8 fL (80-100); MPV 8.6 fL (7.6-11.3); Neutrophils % 60.7 % (41.7-73.7); Platelets 229 thou/uL (152-406); RBC Red Blood Cell Count 4.45 M/uL (3.86-4.86); Red Cell Distribution Width 13.1 % (12.1-15.2)
[2024-06-14 13:44] LABS: Albumin 2.6 g/dL (3.4-5.0); Albumin/Globulin Ratio 0.8 (1.1-1.8); Anion Gap 7.6 mEq/L (5.0-15.0); Bilirubin Total 0.2 mg/dL (0.2-1.0); Globulin 3.3 g/dL (2.3-3.5); Potassium 4.6 mEq/L (3.5-5.1); Protein, Total 5.9 g/dL (6.4-8.2)
--- NOTE | 2024-06-14 13:48 | EDPHYS ---
Physician Documentation [facility] Name: Valencia Fernández Age: 48 yrs Sex: Female : 1975 Arrival Date: 06/14/2024 Time: 09:03 Bed 12 Private MD: ED Physician Uche Chapin HPI: 06/14 11:11 This 48 yrs old Female presents to ER via Ambulatory with complaints of Skin Sore(s). rt 11:11 Patient presents to the ED with a wound to the lower abdomen for the past several days. rt Reports that a blistered, hyper, the blister subsequently burst today. Reports of burning pain to the area. Denies fever, chills, other complaints. Reports that is seeping a clear fluid. Symptoms are moderate in severity, no other aggravating alleviating factors.. - Immunization history:: Adult Immunizations unknown. - Infectious Disease History:: Denies. - Family history:: not pertinent. - Social history:: Smoking status: Patient denies any tobacco usage or history of. ROS: 14:53 Constitutional: Negative for fever, chills, and weight loss, Cardiovascular: Negative rt for chest pain, palpitations, and edema, Respiratory: Negative for shortness of breath, cough, wheezing, and pleuritic chest pain, Abdomen/GI: Negative for abdominal pain, nausea, vomiting, diarrhea, and constipation, Neuro: Negative for headache, weakness, numbness, tingling, and seizure, 14:53 Skin: Positive for Wound, erythema, Exam: 14:53 Constitutional: This is a well developed, well nourished patient who is awake, alert, rt and in no acute distress. Head/Face: Normocephalic, atraumatic. Chest/axilla: Normal chest wall appearance and motion. Nontender with no deformity. No lesions are appreciated. Cardiovascular: Regular rate and rhythm with a normal S1 and S2. No gallops, murmurs, or rubs. Normal PMI, no JVD. No pulse deficits. Respiratory: Lungs have equal breath sounds bilaterally, clear to auscultation and percussion. No rales, rhonchi or wheezes noted. No increased work of breathing, no retractions or nasal flaring. Abdomen/GI: Soft, non-tender, with normal bowel sounds. No distension or tympany. No guarding or rebound. No evidence of tenderness throughout. Neuro: Awake and alert, GCS 15, oriented to person, place, time, and situation. Cranial nerves II-XII grossly intact. Motor strength 5/5 in all extremities. Sensory grossly intact. Cerebellar exam normal. Normal gait. 14:53 Skin: Area of cellulitis to the lower abdomen, apparent burst blister, signs of bullous impetigo, no fluctuance, signs of abscess. Vital Signs: 10:02 BP 122 / 84; Pulse 72; Resp 16; Temp 98.1; Pulse Ox 100% on R/A; iw MDM: 10:08 Medical Screening Exam initiated rt 14:53 Differential Diagnosis Cellulitis, bullous impetigo, abscess. Data reviewed: vital rt signs, nurses notes, lab test result(s). Consideration of Admission/Observation Escalation of care including admission/observation considered. I considered the following discharge prescriptions or medication management in the emergency department Medications were administered in the Emergency Department. See MAR. Test considered but Not performed: CT: No abdominal tenderness, low suspicion for abscess, CT scan is not indicated. Counseling: I had a detailed discussion with the patient and/or guardian regarding the historical points, exam findings, and any diagnostic results supporting the discharge/admit diagnosis, lab results, the need for outpatient follow up, to return to the emergency department if symptoms worsen or persist or if there are any questions or concerns that arise at home. Response to treatment: the patient's symptoms have mildly improved after treatment. 06/14 10:09 Order name: CBC with Diff; Complete Time: 13:45 rt 06/14 10:09 Order name: CMP; Complete Time: 13:45 rt 06/14 11:51 Order name: Labs - recollect needed: green and purple; Complete Time: 13:27 bc6 06/14 12:20 Order name: Dressing - Wound; Complete Time: 12:26 rt Administered Medications: 12:26 Drug: Doxycycline PO 100 mg PO once Route: PO; iw 12:30 Follow up: Response: No adverse reaction iw 12:29 Drug: Hydrocodone-Acetaminophen PO (7.5 mg-325 mg) 1 tabs PO once Route: PO; iw 12:40 Follow up: Response: No adverse reaction iw Disposition Summary: 06/14/24 13:47 Discharge Ordered Notes: Location: Home rt Problem: new rt Symptoms: have improved rt Condition: Stable rt Diagnosis - Bullous impetigo rt Followup: rt - With: Private Physician - When: 2 - 3 days - Reason: Discharge Instructions: - Discharge Summary Sheet rt - Cellulitis, Adult rt - Impetigo, Adult rt Forms: - Medication Reconciliation Form rt - Antibiotic Education rt - Prescription Opioid Use rt - Patient Portal Instructions rt - Leadership Thank You Letter rt Prescriptions: - mupirocin 2 % Topical ointment - apply 1 application TOPICAL route 3 times per day Please dispense QS for 7 rt days; 1 Each; Refills: 0, Product Selection Permitted - Doxycycline Hyclate 100 mg Oral Tablet - take 1 tablet ORAL route every 12 hours; 20 tablet; Refills: 0, Product rt Selection Permitted - Tramadol 50 mg Oral Tablet - take 1 tablet ORAL route every 8 hours as needed; 12 tablet; Refills: 0, rt Product Selection Permitted Signatures: Dispatcher [employer] Karishma Vigil RN RN iw Uche Chapin MD MD rt Shweta Perales bc6
--- NOTE | 2024-06-14 13:48 | ER ---
Nurse's Notes [facility] Name: Valencia Fernández Age: 48 yrs Sex: Female : 1975 Arrival Date: 06/14/2024 Time: 09:03 Bed 12 Private MD: Diagnosis: Bullous impetigo Presentation: 06/14 10:02 Chief complaint: Patient states: abscess to left lower abdominal area. Coronavirus iw screen: At this time, the client does not indicate any symptoms associated with coronavirus-19. Ebola Screen: No symptoms or risks identified at this time. Initial Sepsis Screen: Does the patient meet any 2 criteria? No. Patient's initial sepsis screen is negative. Does the patient have a suspected source of infection? No. Patient's initial sepsis screen is negative. Risk Assessment: Do you want to hurt yourself or someone else? Patient reports no desire to harm self or others. Onset of symptoms was June 11, 2024. 10:02 Method Of Arrival: Ambulatory iw 10:02 Acuity: [place] 3 iw Triage Assessment: 11:30 General: Appears in no apparent distress. Behavior is calm, cooperative. iw - Immunization history:: Adult Immunizations unknown. - Infectious Disease History:: Denies. - Family history:: not pertinent. - Social history:: Smoking status: Patient denies any tobacco usage or history of. Screenin:30 [facility] ED Fall Risk Assessment (Adult) History of falling in the last 3 months, iw including since admission No falls in past 3 months (0 pts) Confusion or Disorientation No (0 pts) Intoxicated or Sedated No (0 pts) Impaired Gait No (0 pts) Mobility Assist Device Used No (0 pt) Altered Elimination No (0 pt) Score/Fall Risk Level 0 - 2 = Low Risk Oriented to surroundings, Maintained a safe environment. Abuse screen: Denies threats or abuse. Denies injuries from another. Nutritional screening: No deficits noted. Tuberculosis screening: No symptoms or risk factors identified. Assessment: 11:30 General: Appears uncomfortable, Behavior is calm, cooperative. Pain: Complains of pain iw in left lower quadrant Pain currently is 8 out of 10 on a pain scale. Neuro: Level of Consciousness is awake, alert, obeys commands, Oriented to person, place, time, situation, Moves all extremities. Full function. Derm: Abscess located on left lower quadrant is quarter sized, is hot to touch, is red, was lanced by patient prior to arrival. Musculoskeletal: Range of motion: intact in all extremities. 13:50 Reassessment: Patient appears in no apparent distress at this time. Patient and/or iw family updated on plan of care and expected duration. Pain level reassessed. Patient is alert, oriented x 3, equal unlabored respirations, skin warm/dry/pink. Vital Signs: 10:02 BP 122 / 84; Pulse 72; Resp 16; Temp 98.1; Pulse Ox 100% on R/A; iw ED Course: 09:06 Patient arrived in ED. mr 09:07 Uche Chapin MD is Attending Physician. rt 10:03 Triage completed. iw 10:03 Arm band placed on. iw 11:30 Patient has correct armband on for positive identification. iw 11:34 Karishma Calderon RN is Primary Nurse. iw 11:39 CMP Sent. rk3 11:39 CBC with Diff Sent. rk3 11:39 Inserted saline lock: 20 gauge in left antecubital area, using aseptic technique. IV rk3 discontinued, bleeding controlled. 14:09 No provider procedures requiring assistance completed. iw 14:09 IV discontinued, intact, bleeding controlled, No redness/swelling at site. Pressure iw dressing applied. Administered Medications: 12:26 Drug: Doxycycline PO 100 mg PO once Route: PO; iw 12:30 Follow up: Response: No adverse reaction iw 12:29 Drug: Hydrocodone-Acetaminophen PO (7.5 mg-325 mg) 1 tabs PO once Route: PO; iw 12:40 Follow up: Response: No adverse reaction iw Medication: 12:40 VIS not applicable for this client. iw Outcome: 13:47 Discharge ordered by . rt 14:09 Discharged to home ambulatory, iw 14:09 Condition: good 14:09 Discharge instructions given to patient, Instructed on discharge instructions, follow up and referral plans. Demonstrated understanding of instructions, follow-up care, medications, Prescriptions given X 2, 14:10 Patient left the ED. iw Signatures: Lissette Mcmillan, Reg Reg mr Karishma Calderon, RN RN iw Uche Chapin MD MD rt Matt Goodwin rk3
[2024-06-14 14:23] VITALS: BP 122/84; TEMP 98.1; O2SAT 100
== END 2024-06-14 14:10 | disposition home or self-care (01) ==
LOC: ER 09:03
DX: L01.03 Bullous impetigo (principal)
CPT/HCPCS: 36415; 80053; 85025; 99284